=== PATIENT | female | born 1965 | race Caucasian/White ===

== ENCOUNTER 2017-09-11 16:14 | Emergency (ER) | payer SELFPAY, BC | END 2017-09-11 18:10 | disposition left against medical advice (07) | LOC: E/R 18:10 | DX: Z53.21 Procedure and treatment not carried out due to patient leaving prior to being seen by health care provider (principal) ==

== ENCOUNTER 2018-10-26 08:11 | Day surgery (SDC) | payer BC ==
[2018-10-26] MEDS ORDERED: PROPOFOL 20 ML (09:48)
[2018-10-26] MEDS ORDERED: FENTAnyl 50 MCG/ML VIAL (09:49)
[2018-10-26] MEDS ORDERED: ONDANSETRON 4 MG INJ IV (10:00)
== END 2018-10-26 12:39 | disposition home or self-care (01) ==
LOC: GIL 08:11 → SDS 08:11 → GIL 08:11
DX: Z12.11 Encounter for screening for malignant neoplasm of colon (principal); D12.5 Benign neoplasm of sigmoid colon; K64.8 Other hemorrhoids; I10 Essential (primary) hypertension; E11.9 Type 2 diabetes mellitus without complications
CPT/HCPCS: 45380; 88305